=== PATIENT | female | born 1995 | race Caucasian/White ===

== ENCOUNTER 2016-12-22 21:38 | Emergency (ER) | payer BC, OTHER ==
[~2016-12-22] VITALS: Ht 172.7 cm; Wt 97.5 kg
[~2016-12-22 21:38] MED LIST: ADDSR/15 PO; BCPILLS PO
[2016-12-22 21:48] VITALS: TEMP 36.9; Ht 172.7 cm; Wt 97.5 kg
[2016-12-22] MEDS ORDERED: KETOROLAC TROMETHAMINE 30 MG/ML VIAL IV STA (22:28)
[2016-12-22] MEDS ORDERED: SODIUM CHLORIDE 0.9% 500ML 500 ML IV STA (22:28)
[2016-12-22 22:36] LABS: URINE APPEARANCE CLEAR (CLEAR); URINE BILIRUBIN NEG (NEG); URINE COLOR YELLOW; URINE NITRITE NEG (NEG); URINE PH 6.5 (4.5-7.5); URINE SPECIFIC GRAVITY 1.009 (1.000-1.030); UROBILINOGEN NEG (NEG); ZZUR CULT IF INDIC CLEAN CATCH NO
--- NOTE | 2016-12-22 22:43 | EMERGENCY ROOM VISIT NOTE ---
History Report prepared by Jarad: Joya Collier Under the Supervision of: Dr. Andrew Leyva M.D. First contact with patient: 22:24 Chief Complaint: ABDOMINAL PAIN Stated Complaint: ABDOMINAL PAIN Nursing Triage Summary: pt reports right lower abd pain that started around 2100 while working at the [employer]. pt then felt nausated and had 1 emesis. dx with ovarian cyst a few weeks ago. History of Present Illness The patient is a 21 year old female who presents to the Emergency Room with complaints of worsening RLQ abdominal pain that began 1.5 hours [employer]PERATIONS TRAIN[employer]. The patient was working at the [employer] when she started to feel nauseated around 9pm. She had one episode of vomiting and was on her way to go to bed when she developed RLQ abdominal pain. She stopped at the EMS bench and was brought to the ED by ambulance for further evaluation. She received antiemetics en route that she states have helped to alleviate her nausea. The patient rates her current pain as a 4/10 in severity. Two weeks ago she had an US in [place] and was diagnosed with a right-sided ovarian cyst. She has a history of ovarian cysts. The patient reports that she has had some dysuria, nausea, diarrhea, and headaches over the past couple of days. She denies fevers, abnormal vaginal discharge or bleeding, and any trauma to the abdomen. Her LNMP was this past week. 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 Review of Systems See HPI for pertinent positives & negatives. A total of 10 systems reviewed and were otherwise negative. Past Medical & Surgical Medical Problems: (1) Ovarian cyst Surgical Problems: (1) History of ovarian cystectomy Family History Cancer Diabetes mellitus Hypertension Kidney disease Kidney stones Social History Smoking Status: Current Every Day Smoker Alcohol Use: occasionally Marital Status: single Housing Status: lives with family Occupation Status: employed Current/Historical Medications Scheduled Bupropion (Wellbutrin), 75 MG PO DAILY Bupropion (Wellbutrin), 100 MG PO DAILY Allergies Coded Allergies: Penicillins (Verified Allergy, Unknown, hives, swelling, 12/22/16) Sulfamethoxazole w/Trimethoprim (Verified Allergy, Unknown, hives, 12/22/16 ) Physical Exam Vital Signs Date Time Temp Pulse Resp B/P (MAP) Pulse Ox O2 Delivery O2 Flow Rate FiO2 12/23/16 01:23 45 14 103/61 98 Room Air 12/22/16 23:24 48 16 112/72 99 Room Air 12/22/16 22:59 44 12/22/16 22:55 40 20 123/72 99 Room Air 12/22/16 21:48 36.9 65 20 112/69 100 Room Air Physical Exam GENERAL: Patient is in no acute distress. HEENT: No acute trauma, normocephalic atraumatic, mucous membranes moist, no nasal congestion, no scleral icterus. NECK: No stridor, no adenopathy, no meningismus, trachea is midline. LUNGS: Clear to auscultation bilaterally, no wheeze, no rhonchi, breath sounds equal. HEART: Without murmurs gallops or rubs, regular rate and rhythm. ABDOMEN: Soft, tender in the RLQ/pelvis, bowel sounds positive, no hernias, no peritonitis. EXTREMITIES: No cyanosis or edema, full range of motion of all the joints without pain or difficulty, no signs for acute trauma. NEUROLOGIC: Oriented x 3, no acute motor or sensory deficits, no focal weakness. SKIN: No rash, no jaundice, no diaphoresis. Medical Decision & Procedures ER Provider Diagnostic Interpretation: PELVIS US: Preliminary results from the US show good blood flow to both ovaries. There were follicles noted to both ovaries but no large ovarian cyst. The official results are still pending. Laboratory Results 12/22/16 21:15 Red Blood Count 4.00, Mean Corpuscular Volume 90.0, Mean Corpuscular Hemoglobin 29.8, Mean Corpuscular Hemoglobin Concent 33.1, Mean Platelet Volume 12.1, Neutrophils (%) (Auto) 51.9, Lymphocytes (%) (Auto) 39.1, Monocytes (%) (Auto) 6.9, Eosinophils (%) (Auto) 1.7, Basophils (%) (Auto) 0.4, Neutrophils # (Auto) 3.99, Lymphocytes # (Auto) 3.00, Monocytes # (Auto) 0.53, Eosinophils # (Auto) 0.13, Basophils # (Auto) 0.03 12/22/16 21:15 Test 12/22/16 21:15 12/22/16 21:55 White Blood Count 7.68 K/uL (4.8-10.8) Red Blood Count 4.00 M/uL (4.2-5.4) Hemoglobin 11.9 g/dL (12.0-16.0) Hematocrit 36.0 % (37-47) Mean Corpuscular Volume 90.0 fL (80-100) Mean Corpuscular Hemoglobin 29.8 pg (25-34) Mean Corpuscular Hemoglobin Concent 33.1 g/dl (32-36) Platelet Count 232 K/uL (130-400) Mean Platelet Volume 12.1 fL (7.4-10.4) Neutrophils (%) (Auto) 51.9 % Lymphocytes (%) (Auto) 39.1 % Monocytes (%) (Auto) 6.9 % Eosinophils (%) (Auto) 1.7 % Basophils (%) (Auto) 0.4 % Neutrophils # (Auto) 3.99 K/uL (1.4-6.5) Lymphocytes # (Auto) 3.00 K/uL (1.2-3.4) Monocytes # (Auto) 0.53 K/uL (0.11-0.59) Eosinophils # (Auto) 0.13 K/uL (0-0.5) Basophils # (Auto) 0.03 K/uL (0-0.2) RDW Standard Deviation 42.6 fL (36.4-46.3) RDW Coefficient of Variation 13.1 % (11.5-14.5) Immature Granulocyte % (Auto) 0.0 % Immature Granulocyte # (Auto) 0.00 K/uL (0.00-0.02) Anion Gap 8.0 mmol/L (3-11) Est Creatinine Clear Calc Drug Dose 148.8 ml/min Estimated GFR () 136.5 Estimated GFR (Non- 117.7 BUN/Creatinine Ratio 12.4 (10-20) Calcium Level 8.6 mg/dl (8.5-10.1) Total Bilirubin 0.4 mg/dl (0.2-1) Aspartate Amino Transf (AST/SGOT) 20 U/L (15-37) Alanine Aminotransferase (ALT/SGPT) 25 U/L (12-78) Alkaline Phosphatase 55 U/L (45-117) Total Protein 7.5 gm/dl (6.4-8.2) Albumin 4.1 gm/dl (3.4-5.0) Globulin 3.4 gm/dl (2.5-4.0) Albumin/Globulin Ratio 1.2 (0.9-2) Lipase 137 U/L (73-393) Urine Color YELLOW Urine Appearance CLEAR (CLEAR) Urine pH 6.5 (4.5-7.5) Urine Specific [place] 1.009 (1.000-1.030) Urine Protein NEG (NEG) Urine Glucose (UA) NEG (NEG) Urine Ketones NEG (NEG) Urine Occult Blood NEG (NEG) Urine Nitrite NEG (NEG) Urine Bilirubin NEG (NEG) Urine Urobilinogen NEG (NEG) Urine Leukocyte Esterase NEG (NEG) Urine Test NEG (NEG) Laboratory results reviewed by me. Medications Administered Medications (Trade) Dose Ordered Sig/Shemar Route Start Time Stop Time Status Last Admin Dose Admin Ketorolac Tromethamine (Toradol Inj) 30 mg NOW STAT IV 12/22/16 22:28 12/22/16 22:30 DC 12/22/16 22:54 30 MG Sodium Chloride 500 ml @ 999 mls/hr Q31M STAT IV 12/22/16 22:28 12/22/16 22:58 DC 12/22/16 22:53 999 MLS/HR Promethazine HCl 6.25 mg/Sodium Chloride 50.25 ml @ 204 mls/hr NOW STAT IV 12/22/16 22:58 12/22/16 23:12 DC 12/22/16 23:24 204 MLS/HR ECG Indication: bradycardia Rate (beats per minute): 42 Rhythm: sinus bradycardia Findings: no acute ischemic change, no ectopy ED Course 2224: The patient was evaluated in room B8. A complete history and physical exam was performed. 2228: NSS 500 ml @ 999 mls/hr IV, Toradol 30 mg IV 2258: Promethazine HCl 6.25 mg/Sodium Chloride 50.25 ml @ 204 mls/hr IV 2300: The patient became bradycardic, but she is asymptomatic. An ECG was obtained. 0152: I reassessed the patient at this time. She is feeling better and resting comfortably. I discussed the results and treatment plan with the patient. I answered all pertaining questions that she had. She expressed understanding and verbalized agreement. The patient will be discharged home. 0200: Zofran 4 mg PO 1 homepack Medical Decision Differential diagnoses includes ovarian cyst, ovarian torsion, ovarian cyst rupture, UTI, , appendicitis, hernia, musculoskeletal pain. There is no leukocytosis or concerning anemia. No significant electrolyte abnormality, kidney failure or hepatitis. There is no pancreatitis. Urinalysis does not show infection. testing is negative. Preliminary pelvic ultrasound shows good blood flow to both ovaries, no large ovarian cyst seen on the right or left ovary. Official ultrasound results are pending. The patient was given IV Toradol, IV Zofran and IV saline, she feels improved. The patient presents with right lower quadrant discomfort. She had been diagnosed with a right ovarian cyst a few weeks ago. It's possible that this ruptured tonight and caused increased pain and then led to the vomiting. I did discuss the possibility of early appendicitis with her, she understands but is feeling improved. I think she can be discharged with close observation as an outpatient. The patient has agreed to return for increasing pain or lack of improvement, she will return for fever or persistent vomiting. She was given a Zofran home pack, she was discharged home. [id number] pain meds were recommended. Of note, the patient was noted to be bradycardic on the monitor, this was a sinus bradycardia as per the EKG. She was asymptomatic, no chest pain or dyspnea or lightheadedness. Outpatient follow-up was suggested. [place] Drug Monitoring Program Search Results: patient reviewed within database, no issues identified Medication Reconcilliation Current Medication List: was personally reviewed by me Blood Pressure Screening Patient's blood pressure: Normal blood pressure Impression Primary Impression: Right lower quadrant abdominal pain Additional Impression: Vomiting Scribe Attestation The scribe's documentation has been prepared under my direction and personally reviewed by me in its entirety. I confirm that the note above accurately reflects all work, treatment, procedures, and medical decision making performed by me. Departure Information Dispostion Home / Self-Care Referrals Will Cash MD (PCP) Forms HOME CARE DOCUMENTATION FORM, IMPORTANT VISIT INFORMATION Patient Instructions My [facility] Problem Qualifiers Additional Impression: Vomiting Vomiting type: unspecified Vomiting Intractability: non-intractable Nausea presence: with nausea Qualified Codes: R11.2 - Nausea with vomiting, unspecified
[2016-12-22 22:53] LABS: MANUAL MICROSCOPIC REQUIRED? NO; REVIEW REQ? NO
[2016-12-22] MEDS ORDERED: PROMETHAZINE HCL INJ 6.25 MG in SODIUM CHLORIDE 0.9% 50ML 50 ML IV STA (22:58)
[2016-12-22 23:18] LABS: BASO % 0.4 %; BASO ABS # 0.03 K/uL (0-0.2); COMPLETE YES; EOS % 1.7 %; LYMPH % 39.1 %; MEAN CORPUSCULAR HEMOGLOBIN 29.8 pg (25-34); MEAN CORPUSCULAR HGB CONC 33.1 g/dl (32-36); MEAN PLATELET VOLUME 12.1 fL (7.4-10.4); MONO % 6.9 %; NEUT % 51.9 %; PLATELET COUNT 232 K/uL (130-400); WHITE BLOOD COUNT 7.68 K/uL (4.8-10.8)
[2016-12-22 23:24] LABS: BUN/CREATININE RATIO 12.4 (10-20); CALCIUM 8.6 mg/dl (8.5-10.1); CREATININE 0.73 mg/dl (0.60-1.20); POTASSIUM 3.5 mmol/L (3.5-5.1)
[2016-12-22 23:27] LABS: ALB/GLOB RATIO 1.2 (0.9-2)
[2016-12-22] MEDS ORDERED: BUPR-83 PO (23:33)
[2016-12-22] MEDS ORDERED: BUPR75TA20 PO (23:33)
[2016-12-23] MEDS ORDERED: ONDANSETRON HOME PACK 4MG OD TAB PO ONE (02:00)
[2016-12-23 02:07] VITALS: BP 110/66; PULSE 55; O2SAT 98
--- NOTE | 2016-12-23 07:09 | DIAGNOSTIC IMAGING REPORT ---
PELVIC COMPLETE NON OB, TRANSVAG-FEMALE PELVIS CLINICAL HISTORY: 21 years-old Female presenting with r pelvic pain, h/o cyst, last menstrual period 12/22/2016. TECHNIQUE: Real-time grayscale and color and spectral Doppler ultrasound imaging of the pelvis was performed first using a transabdominal probe and subsequently transvaginal for better characterization. COMPARISON: None. FINDINGS: Uterus: Normal. Retroverted. The uterus measures 7.3 x 4.5 x 4.9 cm. Endometrial stripe measures 3 mm in thickness. Endometrium normal-appearing. Cervix contains a nabothian cyst. Right adnexa: Right ovary contains multiple prominent follicles. Right ovary measures 4.3 x 2.2 x 2.3 cm. Normal color Doppler flow and arterial and venous waveforms within the ovarian parenchyma. Left adnexa: Left ovary contains multiple prominent follicles (at least 12). Left ovary measures 4.6 x 1.7 x 1.9 cm. Normal color Doppler flow and arterial and venous waveforms within the ovarian parenchyma. Other: Small amount of free fluid in the cul-de-sac with debris. IMPRESSION: 1. Multiple prominent follicles in ovaries bilaterally. In the appropriate clinical setting, this appearance could be compatible with polycystic ovarian syndrome. 2. No evidence of ovarian torsion. 3. Small free fluid with debris, possibly physiologic. Electronically signed by: Heri Herrera M.D. 12/23/2016 7:08 AM Dictated Date/Time: 12/23/2016 7:04 AM
== END 2016-12-23 02:15 | disposition home or self-care (01) ==
LOC: EDBD 21:38 → C.EDB 21:40
DX: R10.31 Right lower quadrant pain (principal); R11.10 Vomiting, unspecified; Z80.9 Family history of malignant neoplasm, unspecified; Z83.3 Family history of diabetes mellitus; Z82.49 Family history of ischemic heart disease and other diseases of the circulatory system; Z84.1 Family history of disorders of kidney and ureter; F17.210 Nicotine dependence, cigarettes, uncomplicated; Z79.899 Other long term (current) drug therapy

== ENCOUNTER 2016-12-23 03:35 | Emergency (ER) | payer BC, OTHER ==
[~2016-12-23] VITALS: Ht 172.7 cm; Wt 89.5 kg
[~2016-12-23 03:35] MED LIST changes: +BUPR-83 PO; +BUPR75TA20 PO
[2016-12-23 03:43] VITALS: TEMP 36.5; Ht 172.7 cm; Wt 89.5 kg
[2016-12-23] MEDS ORDERED: FENTANYL CITRATE INJ 50 MCG/1 ML 2 ML VIAL IV STA (04:05)
[2016-12-23] MEDS ORDERED: ONDANSETRON INJ 2 MG/ML 2 ML VIAL IV STA (04:05)
--- NOTE | 2016-12-23 04:22 | EMERGENCY ROOM VISIT NOTE ---
History Report prepared by Jarad: Renetta Draper Under the Supervision of: Dr. Gibran Betancourt M.D. First contact with patient: 03:55 Chief Complaint: MENTAL HEALTH EVALUATION Stated Complaint: POOR COGNITIVE,ANXIETY,DEPRESSION,ADD History of Present Illness The patient is a 21 year old female who presents to the Emergency Room for a mental health evaluation. The patient states she was discharged from the hospital and became upset. She states she went into the middle of [facility] and was trying to get hit by a car. She states that she told her friend over the phone that she just wanted to leave so everyone else's lives could be happier. She denies ever trying to hurt herself before, drinking alcohol, and ever being admitted to a psychiatric facility. The patient notes a history of depression. She states she is on Wellbutrin for her depression and took her last dose yesterday. Source of History: patient Onset: this morning Position: other (global) Quality: other (global) Timing: other (episode) Note: She denies ever trying to hurt herself before, drinking alcohol, and ever being admitted to a psychiatric facility Review of Systems See HPI for pertinent positives & negatives. A total of 10 systems reviewed and were otherwise negative. Past Medical & Surgical Medical Problems: (1) Ovarian cyst Surgical Problems: (1) History of ovarian cystectomy Family History Cancer Diabetes mellitus Hypertension Kidney disease Kidney stones Social History Smoking Status: Current Every Day Smoker Alcohol Use: occasionally Marital Status: single Housing Status: lives with family Occupation Status: employed Current/Historical Medications Scheduled Bupropion (Wellbutrin), 75 MG PO DAILY Bupropion (Wellbutrin), 100 MG PO DAILY Allergies Coded Allergies: Penicillins (Verified Allergy, Unknown, hives, swelling, 12/23/16) Sulfamethoxazole w/Trimethoprim (Verified Allergy, Unknown, hives, 12/23/16 ) Physical Exam Vital Signs Date Time Temp Pulse Resp B/P (MAP) Pulse Ox O2 Delivery O2 Flow Rate FiO2 12/23/16 03:43 36.5 51 18 114/76 98 Room Air Physical Exam GENERAL: Patient is well appearing and in no acute distress. HEENT: No acute trauma, normocephalic atraumatic, mucous membranes moist, no nasal congestion, no scleral icterus. NECK: No stridor, no adenopathy, no meningismus, trachea is midline. LUNGS: No dyspnea. Clear to auscultation and equal bilaterally. No wheeze, no rhonchi. HEART: Regular rate and rhythm. No murmurs, rubs, gallops appreciated. ABDOMEN: Soft, nontender, bowel sounds positive, no masses appreciated, no peritonitis. BACK: No midline tenderness, no CVA tenderness EXTREMITIES: Normal motion all extremities, no cyanosis, no edema. NEUROLOGIC: Alert and oriented, no acute motor or sensory deficits, no focal weakness, cranial nerves grossly intact. SKIN: No rash, no jaundice, no diaphoresis. PSYCH: Admits to suicidal ideation and depression. Had plan to get hit by car while standing in the road. Medical Decision & Procedures Laboratory Results 12/23/16 04:23 Red Blood Count 3.67, Mean Corpuscular Volume 89.9, Mean Corpuscular Hemoglobin 30.2, Mean Corpuscular Hemoglobin Concent 33.6, Mean Platelet Volume 11.1, Neutrophils (%) (Auto) 42.3, Lymphocytes (%) (Auto) 47.2, Monocytes (%) (Auto) 8.2, Eosinophils (%) (Auto) 1.8, Basophils (%) (Auto) 0.3, Neutrophils # (Auto) 2.62, Lymphocytes # (Auto) 2.92, Monocytes # (Auto) 0.51, Eosinophils # (Auto) 0.11, Basophils # (Auto) 0.02 12/23/16 04:23 Test 12/23/16 04:00 12/23/16 04:01 12/23/16 04:23 Urine Opiates Screen NEG (NEG) Urine Methadone, Qualitative NEG (NEG) Urine Barbiturates NEG (NEG) Urine Phencyclidine (PCP) Level NEG (NEG) Ur Amphetamine/Methamphetamine NEG (NEG) MDMA (Ecstasy) Screen POS (NEG) Urine Benzodiazepines Screen NEG (NEG) Urine Cocaine Metabolite NEG (NEG) Urine Marijuana (THC) NEG (NEG) Urine Test NEG (NEG) White Blood Count 6.19 K/uL (4.8-10.8) Red Blood Count 3.67 M/uL (4.2-5.4) Hemoglobin 11.1 g/dL (12.0-16.0) Hematocrit 33.0 % (37-47) Mean Corpuscular Volume 89.9 fL (80-100) Mean Corpuscular Hemoglobin 30.2 pg (25-34) Mean Corpuscular Hemoglobin Concent 33.6 g/dl (32-36) Platelet Count 194 K/uL (130-400) Mean Platelet Volume 11.1 fL (7.4-10.4) Neutrophils (%) (Auto) 42.3 % Lymphocytes (%) (Auto) 47.2 % Monocytes (%) (Auto) 8.2 % Eosinophils (%) (Auto) 1.8 % Basophils (%) (Auto) 0.3 % Neutrophils # (Auto) 2.62 K/uL (1.4-6.5) Lymphocytes # (Auto) 2.92 K/uL (1.2-3.4) Monocytes # (Auto) 0.51 K/uL (0.11-0.59) Eosinophils # (Auto) 0.11 K/uL (0-0.5) Basophils # (Auto) 0.02 K/uL (0-0.2) RDW Standard Deviation 42.6 fL (36.4-46.3) RDW Coefficient of Variation 13.1 % (11.5-14.5) Immature Granulocyte % (Auto) 0.2 % Immature Granulocyte # (Auto) 0.01 K/uL (0.00-0.02) Anion Gap 8.0 mmol/L (3-11) Est Creatinine Clear Calc Drug Dose 173.6 ml/min Estimated GFR () > 150.0 Estimated GFR (Non- 130.3 BUN/Creatinine Ratio 13.6 (10-20) Calcium Level 8.3 mg/dl (8.5-10.1) Total Bilirubin 0.5 mg/dl (0.2-1) Aspartate Amino Transf (AST/SGOT) 16 U/L (15-37) Alanine Aminotransferase (ALT/SGPT) 20 U/L (12-78) Alkaline Phosphatase 48 U/L (45-117) Total Protein 6.3 gm/dl (6.4-8.2) Albumin 3.5 gm/dl (3.4-5.0) Globulin 2.8 gm/dl (2.5-4.0) Albumin/Globulin Ratio 1.3 (0.9-2) Thyroid Stimulating Hormone (TSH) 2.070 uIu/ml (0.300-4.500) Salicylates Level < 1.7 mg/dl (2.8-20) Acetaminophen Level < 2 ug/ml (10-30) Ethyl Alcohol mg/dL < 3.0 mg/dl (0-3) Laboratory results as reviewed by me. ED Course 0357: The patient was evaluated in room A6. A complete history and physical exam was performed. 0532: Dean Montalvo has evaluated the patient and agreed that the patient should be placed. The patient requested to sign in involuntarily. They are beginning to bed search. 0730: The patient was signed out to Dr. Koo and is awaiting mental health placement. Medical Decision Differential: Mood Disorder, Overdose, Infectious, Electrolyte Abnormality, Cardiac, Hepatic, Endocrine, Toxicologic, Neurologic, amongst other pathologies entertained. 21 yr old female who was just discharged from ed for evaluation of abdominal pain felt to be ovarian cyst related arrives for re-peat evaluation this time for suicidal ideation. Admits worsening depression secondary to family issues and while outside decided she would kill herself. She admits telling family she was planning on dieing, and admits she went in to road with plan to be hit by car. She admits depression and suicidal ideation. Notes she is feeling better now but that she is hopeless. She feels she needs inpatient mental health treatment. Labs unremarkable as is exam. Medically cleared and evaluated by Dean Montalvo who agree need for inpatient. Patient wishes to sign herself in on voluntary basis. Will leave [address] stand until definitive on 201 and signed out to Dr Koo awaiting this. Medication Reconcilliation Current Medication List: was personally reviewed by me Blood Pressure Screening Patient's blood pressure: Normal blood pressure Impression Primary Impression: Suicidal ideation Additional Impressions: Suicide attempt Depression Scribe Attestation The scribe's documentation has been prepared under my direction and personally reviewed by me in its entirety. I confirm that the note above accurately reflects all work, treatment, procedures, and medical decision making performed by me. Departure Information Dispostion Mental Health Acute Care Referrals Familia Beaulieu PA-C (PCP) Patient Instructions My [facility] Problem Qualifiers
[2016-12-23 04:28] LABS: BENZODIAZEPINE, URINE NEG (NEG); COCAINE,URINE NEG (NEG); PHENCYCLIDINE, URINE NEG (NEG)
[2016-12-23 04:33] LABS: BASO % 0.3 %; BASO ABS # 0.02 K/uL (0-0.2); COMPLETE YES; EOS % 1.8 %; IG% 0.2 %; LYMPH % 47.2 %; LYMPH ABS # 2.92 K/uL (1.2-3.4); MEAN CELL VOLUME 89.9 fL (80-100); MEAN CORPUSCULAR HEMOGLOBIN 30.2 pg (25-34); MEAN CORPUSCULAR HGB CONC 33.6 g/dl (32-36); MEAN PLATELET VOLUME 11.1 fL (7.4-10.4); MONO % 8.2 %; NEUT % 42.3 %; PLATELET COUNT 194 K/uL (130-400); RED BLOOD COUNT 3.67 M/uL (4.2-5.4); WHITE BLOOD COUNT 6.19 K/uL (4.8-10.8)
[2016-12-23 04:50] LABS: ALT/SGPT 20 U/L (12-78); AST/SGOT 16 U/L (15-37); BLOOD UREA NITROGEN 8 mg/dl (7-18); BUN/CREATININE RATIO 13.6 (10-20); CALCIUM 8.3 mg/dl (8.5-10.1); CARBON DIOXIDE 24 mmol/L (21-32); CHLORIDE 112 mmol/L (98-107); GLUCOSE 91 mg/dl (70-99); POTASSIUM 3.3 mmol/L (3.5-5.1); SODIUM 144 mmol/L (136-145)
[2016-12-23 05:00] LABS: ALB/GLOB RATIO 1.3 (0.9-2); ALKALINE PHOSPHATASE 48 U/L (45-117)
[2016-12-23 05:03] LABS: ACETAMINOPHEN < 2 ug/ml (10-30)
--- NOTE | 2016-12-23 10:00 | EMERGENCY ROOM VISIT NOTE ---
ED Visit Note The patient was signed out to me awaiting mental health evaluation/accepting facility. The patient was accepted to the [facility]. 302 was denied because the patient was voluntary. She was sent to the [facility].
[2016-12-23 10:23] VITALS: BP 111/69; PULSE 58; O2SAT 99
== END 2016-12-23 10:24 ==
LOC: C.EDB 03:36 → C.EDA 10:24
DX: R45.851 Suicidal ideations (principal); F32.9 Major depressive disorder, single episode, unspecified; Z80.9 Family history of malignant neoplasm, unspecified; Z83.3 Family history of diabetes mellitus; Z82.49 Family history of ischemic heart disease and other diseases of the circulatory system; Z84.1 Family history of disorders of kidney and ureter; F17.210 Nicotine dependence, cigarettes, uncomplicated; Z79.899 Other long term (current) drug therapy